=== PATIENT | female | born 1990 | race American Indian/Alaskan Native ===

== ENCOUNTER 2016-10-17 16:36 | Emergency (ER) | payer SELFPAY ==
[2016-10-17 17:11] VITALS: BP 126/76
== END 2016-10-17 18:00 | disposition left against medical advice (07) ==
LOC: ED 16:36
DX: L98.9 Disorder of the skin and subcutaneous tissue, unspecified (principal); R06.00 Dyspnea, unspecified; Z53.21 Procedure and treatment not carried out due to patient leaving prior to being seen by health care provider

== ENCOUNTER 2017-11-18 09:03 | Emergency (ER) | payer OTHER ==
[2017-11-18 09:07] VITALS: BP 144/89
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
[2017-11-18] MEDS ORDERED: MOTRIN PO ONE (09:27)
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
== END 2017-11-18 09:53 | disposition home or self-care (01) ==
LOC: ED 09:03
DX: G89.29 Other chronic pain (principal); M25.561 Pain in right knee; Z87.891 Personal history of nicotine dependence
CPT/HCPCS: 71046; 93005; 93010; 99283

== ENCOUNTER 2017-12-15 01:03 | Emergency (ER) | payer SELFPAY ==
[2017-12-15 01:59] LABS: Basophils # (Auto) 0.1 K/mm3 (0.0-0.1); Basophils % (Auto) 0.7 % (0.0-1.8); Eosinophils # (Auto) 0.2 K/mm3 (0.0-0.4); Hematocrit 36.7 % (30.3-42.9); Lymphocytes # (Auto) 2.7 K/mm3 (1.2-5.4); Lymphocytes % (Auto) 22.1 % (13.4-35.0); Mean Corpuscular HGB Conc 33 % (30-34); Mean Corpuscular Hemoglobin 28 pg (28-32); Mean Corpuscular Volume 84 fl (79-97); Platelet Count 314 K/mm3 (140-440); Red Blood Count 4.37 M/mm3 (3.65-5.03); Red Cell Distribution Width 13.8 % (13.2-15.2)
[2017-12-15 02:56] LABS: Alanine Aminotransferase 13 units/L (7-56); Albumin 4.3 g/dL (3.9-5); BUN/Creatinine Ratio 11; Blood Urea Nitrogen 9 mg/dL (7-17); Calcium 9.3 mg/dL (8.4-10.2); Hemolysis Index 0
[2017-12-15] MEDS: NACL 0.9% 1000 ML 1,000 ML IV ONE ×2 (03:23→04:25)
[2017-12-15] MEDS ORDERED: MORPHINE IV ONE (03:30)
[2017-12-15 04:24] VITALS: BP 115/79
--- NOTE | 2017-12-15 04:38 | Ultrasound Report ---
FINAL REPORT EXAM: US ABDOMEN LIMITED HISTORY: RUQ abd pain TECHNIQUE: Routine imaging was obtained of the right upper quadrant. FINDINGS: The gallbladder is normal size and contains multiple stones, 1 of which is in the neck. The gallbladder wall thickness is 2.4 mm. A Reynoso sign was not elicited when scanning over the gallbladder. The liver is normal in size and echotexture. The common bile duct is normal caliber 4.6 mm. The pancreatic head and body appear normal. The tail of the pancreas is not well seen. The right kidney is normal size contour and echotexture measuring 10.5 cm x 5.3 cm by 4 cm. There is no evidence of hydronephrosis. The IVC is patent. The proximal abdominal aorta measures 1.6 cm in diameter. IMPRESSION: Cholelithiasis with mild gallbladder wall thickening. A Reynoso sign was not elicited. Normal-appearing liver and biliary tree. No evidence of hydronephrosis.
--- NOTE | 2017-12-15 05:18 | Emergency Department Report ---
HPI - General Chief Complaint: Abdominal Pain Time Seen by Provider: 12/15/17 03:18 - HPI HPI: 27-year-old female presents to the emergency department with complaint of upper abdominal pain that has been going on for the past 3 months. It occurs intermittently but over the past few days it has been more consistent. She came in this evening because she says that the pain was worse than usual. Sometimes the pain is brought on or made worse by eating certain foods. She denies any nausea, vomiting, diaphoresis, dysuria, vaginal bleeding or discharge. She has not taken anything for her symptoms prior to presentation. She denies any past medical history. ED Past Medical Hx - Past Medical History Previous Medical History?: No Additional medical history: sinus infection - Surgical History Past Surgical History?: Yes Additional Surgical History: sinus surgery - Social History Smoking Status: Never Smoker Substance Use Type: None - Medications Home Medications: Home Medications Medication Instructions Recorded Confirmed Last Taken Type Ibuprofen [Motrin] 600 mg PO Q8H PRN #20 tablet 11/18/17 Unknown Rx methOCARBAMOL [Robaxin TAB] 500 mg PO Q6H PRN #15 tablet 11/18/17 Unknown Rx traMADol [Ultram 50 MG tab] 50 mg PO Q6HR PRN #12 tablet 12/15/17 Unknown Rx ED Review of Systems ROS: Stated complaint: ABD PAIN Other details as noted in HPI Comment: All other systems reviewed and negative Constitutional: denies: chills, fever Eyes: denies: eye pain, eye discharge, vision change ENT: denies: ear pain, throat pain Respiratory: denies: cough, shortness of breath, wheezing Cardiovascular: denies: chest pain, palpitations Gastrointestinal: abdominal pain. denies: nausea, vomiting Genitourinary: denies: urgency, dysuria, discharge Musculoskeletal: denies: back pain, joint swelling, arthralgia Skin: denies: rash, lesions Neurological: denies: headache, weakness, paresthesias Physical Exam - Physical Exam Vital Signs: Vital Signs 12/15/17 12/15/17 12/15/17 01:12 01:24 04:21 Temperature 97.7 F 97.7 F 97.7 F Pulse Rate 101 H 92 H 68 Respiratory 16 18 Rate Blood Pressure 119/72 119/72 115/79 O2 Sat by Pulse 100 98 98 Oximetry 12/15/17 04:27 Temperature Pulse Rate Respiratory 18 Rate Blood Pressure O2 Sat by Pulse 98 Oximetry Physical Exam: GENERAL: The patient is well-developed well-nourished. HENT: Normocephalic. Atraumatic. Patient has moist mucous membranes. EYES: Extraocular motions are intact. Pupils equal reactive to light bilaterally. NECK: Supple. Trachea is midline. CHEST/LUNGS: Clear to auscultation. There is no respiratory distress noted. HEART/CARDIOVASCULAR: Regular. There is no tachycardia. There is no murmur. ABDOMEN: Abdomen is soft. Upper abdominal tenderness to palpation. No guarding. Patient has normal bowel sounds. There is no abdominal distention. SKIN: Skin is warm and dry. NEURO: The patient is awake, alert, and oriented. The patient is cooperative. The patient has no focal neurologic deficits. The patient has normal speech. MUSCULOSKELETAL: There is no tenderness or deformity. There is no limitation range of motion. There is no evidence of acute injury. ED Course Vital Signs 12/15/17 12/15/17 12/15/17 01:12 01:24 04:21 Temperature 97.7 F 97.7 F 97.7 F Pulse Rate 101 H 92 H 68 Respiratory 16 18 Rate Blood Pressure 119/72 119/72 115/79 O2 Sat by Pulse 100 98 98 Oximetry 12/15/17 04:27 Temperature Pulse Rate Respiratory 18 Rate Blood Pressure O2 Sat by Pulse 98 Oximetry ED Medical Decision Making - Lab Data Result diagrams: 12/15/17 01:39 12/15/17 01:39 - Radiology Data Radiology results: report reviewed EXAM: US ABDOMEN LIMITED HISTORY: RUQ abd pain TECHNIQUE: Routine imaging was obtained of the right upper quadrant. FINDINGS: The gallbladder is normal size and contains multiple stones, 1 of which is in the neck. The gallbladder wall thickness is 2.4 mm. A Reynoso sign was not elicited when scanning over the gallbladder. The liver is normal in size and echotexture. The common bile duct is normal caliber 4.6 mm. The pancreatic head and body appear normal. The tail of the pancreas is not well seen. The right kidney is normal size contour and echotexture measuring 10.5 cm x 5.3 cm by 4 cm. There is no evidence of hydronephrosis. The IVC is patent. The proximal abdominal aorta measures 1.6 cm in diameter. IMPRESSION: Cholelithiasis with mild gallbladder wall thickening. A Reynoso sign was not elicited. Normal-appearing liver and biliary tree. No evidence of hydronephrosis. Transcribed By: RB Dictated By: KARYNA SUH MD Electronically Authenticated By: KARYNA SUH MD Signed Date/Time: 12/15/17 0437 - Medical Decision Making Patient presents with a three-month history of some upper abdominal pain that has worsened recently. Labs are unremarkable. Ultrasound shows cholelithiasis without cholecystitis. Vital signs stable throughout her ED course. Patient discharged home with some pain medication and a referral for general surgery. She will return to the ER with any worsening of her symptoms or any acute distress. - Differential Diagnosis cholelithiasis, cholecystitis, pancreatitis, gastritis Critical Care Time: No Critical care attestation.: If time is entered above; I have spent that time in minutes in the direct care of this critically ill patient, excluding procedure time. ED Disposition Clinical Impression: Cholelithiases Qualifiers: Cholelithiasis location: gallbladder Cholecystitis presence: without cholecystitis Biliary obstruction: without biliary obstruction Qualified Code(s) : K80.20 - Calculus of gallbladder without cholecystitis without obstruction Abdominal pain Qualifiers: Abdominal location: upper abdomen, unspecified Qualified Code(s): R10.10 - Upper abdominal pain, unspecified Disposition: DC-01 TO HOME OR SELFCARE Is pt being admited?: No Condition: Stable Instructions: Biliary Colic (ED), Abdominal Pain (ED) Additional Instructions: Please follow-up with your primary care physician. I have given him a referral for a local general surgeon, Dr. Garcia, to follow up regarding your gallstones. Try and stay away from foods that are spicy, fatty and/or greasy. Return to the emergency Department with any worsening of your symptoms or any acute distress. You have been prescribed a medication that is sedating and therefore should not be taken prior to driving, working, and responsible for children and in no way should be mixed with alcohol of any quantity. Prescriptions: traMADol [Ultram 50 MG tab] 50 mg PO Q6HR PRN #12 tablet PRN Reason: Pain Referrals: PRIMARY CARE, [Primary Care Provider] - 3-5 Days CARINA OLIVAS DO [Staff Physician] - 3-5 Days Forms: Work/School Release Form(ED) Time of Disposition: 06:14
[2017-12-15 05:38] LABS: Bilirubin,Urine NEG (Negative); Blood,Urine NEG (Negative); Color,Urine Straw (Yellow); Protein,Urine <15 mg/dL mg/dL (Negative); RBC,Urine < 1.0 /HPF (0.0-6.0); Urobilinogen,Urine < 2.0 mg/dL (<2.0); WBC,Urine < 1.0 /HPF (0.0-6.0)
== END 2017-12-15 06:34 | disposition home or self-care (01) ==
LOC: ED 01:03
DX: K80.20 Calculus of gallbladder without cholecystitis without obstruction (principal)
CPT/HCPCS: 36415; 76705; 80053; 81001; 84703; 85025; 96374; 99284; J2270; J7030

== ENCOUNTER 2018-09-04 21:28 | Emergency (ER) | payer BC, OTHER ==
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
[2018-09-04 22:14] LABS: Bilirubin,Urine NEG (Negative); Blood,Urine MOD (Negative); Color,Urine Straw (Yellow); Mucus,Urine FEW /HPF; Protein,Urine <15 mg/dL mg/dL (Negative); Urobilinogen,Urine < 2.0 mg/dL (<2.0)
[2018-09-04 22:16] LABS: HCG Qualitative,Urine Negative (Negative)
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
== END 2018-09-05 04:15 | disposition home or self-care (01) ==
LOC: ED 21:28
DX: N30.00 Acute cystitis without hematuria (principal)
CPT/HCPCS: 81001; 81025; 99283